=== PATIENT | male | born 1950 | race Two or more races ===

== ENCOUNTER 2017-10-22 20:44 | Emergency (ER) | payer MEDICARE, OTHER ==
[~2017-10-22] VITALS: Ht 172.7 cm; Wt 81.6 kg
[2017-10-22 20:51] VITALS: BP 110/76
[2017-10-22] MEDS ORDERED: Phenytoin Susp 100mg/4ml NG ONE (21:15)
[2017-10-22] MEDS ORDERED: Phenytoin 100mg cap ORAL ONE (21:30)
[2017-10-23] MEDS ORDERED: DILANTIN100 MG ORAL (01:19)
--- NOTE | 2017-10-23 01:20 | Emergency Room Report ---
History of Present Illness General Chief Complaint: Multiple Trauma/Fall Source: Patient Present Illness HPI Is a 67-year-old male who uses a wheelchair. He has a history of seizure and alcohol abuse. He presents with right shoulder pain and head injury. He said that he fell out of his wheelchair and landed on his right shoulder hit his head. Complaining of pain in that area. He called 911. Pain is 9 out of 10. No other injury. Did not pass out. EMS did not bring his wheelchair with him. Allergies: Coded Allergies: No Known Allergies (Unverified , 10/22/17) Patient History Past Medical History: see triage record, old chart reviewed, seizures Past Surgical History: other Pertinent Family History: none Social History: Reports: alcohol use Immunizations: other Reviewed Nursing Documentation: PMH: Agreed; PSxH: Agreed Nursing Documentation-PMH Hx Seizures: Yes Review of Systems Eye: Denies: eye pain, blurred vision ENT: Denies: ear pain, nose congestion, throat swelling Respiratory: Denies: cough, shortness of breath Cardiovascular: Denies: chest pain, palpitations Gastrointestinal: Denies: abdominal pain, diarrhea, nausea, vomiting Musculoskeletal: Reports: joint swelling; Denies: back pain, joint pain Skin: Denies: rash Neurological: Denies: headache, numbness Endocrine: Denies: increased thirst, increased urine Hematologic/Lymphatic: Denies: easy bruising All Other Systems: negative except mentioned in HPI Physical Exam Vital Signs Date Time Temp Pulse Resp B/P (MAP) Pulse Ox O2 Delivery O2 Flow Rate FiO2 10/22/17 20:39 98.4 98 18 110/76 98 Room Air 98.4 vitals normal Sp02 EP Interpretation: reviewed, normal General Appearance: well appearing, no apparent distress, alert, other - Intoxicated Head: normocephalic, atraumatic Eyes: right eye other - He has some puffiness to right eyelids; bilateral eye PERRL, bilateral eye EOMI ENT: hearing grossly normal, normal pharynx Neck: full range of motion, supple, no meningismus Respiratory: chest non-tender, lungs clear, normal breath sounds Cardiovascular #1: regular rate, rhythm, no murmur Gastrointestinal: normal bowel sounds, non tender, no mass, no organomegaly, no bruit, non-distended Musculoskeletal: back normal, normal range of motion, other - Right shoulder tenderness. Patient is sleeping on that shoulder. Psychiatric: mood/affect normal Skin: warm/dry Medical Decision Making Diagnostic Impression: Primary Impression: Head injury, acute Qualified Codes: S09.90XA - Unspecified injury of head, initial encounter Additional Impressions: Contusion of shoulder, right Qualified Codes: S40.011A - Contusion of right shoulder, initial encounter Alcohol intoxication Qualified Codes: F10.920 - Alcohol use, unspecified with intoxication, uncomplicated ER Course Patient presents with soft tissue injury from a fall. No bleed. He said he did not take his Dilantin medication tonight so I gave him a dose. We'll discharge home. Other X-Ray Diagnostic Results Other X-Ray Diagnostic Results : X-Ray ordered: Right shoulder x-rays # of Views/Limited Vs Complete: 3 View Indication: Pain EP Interpretation: Yes Interpretation: no dislocation, no soft tissue swelling, no fractures Impression: No acute disease Electronically Signed by: Davin Zavala MD CT/MRI/US Diagnostic Results CT/MRI/US Diagnostic Results : Imaging Test Ordered: CT head Impression Ct head read by radiologist. Neg Last Vital Signs Date Time Temp Pulse Resp B/P (MAP) Pulse Ox O2 Delivery O2 Flow Rate FiO2 10/22/17 20:51 98.4 98 18 110/76 98 Room Air 98.4 Status: improved Disposition: HOME, SELF-CARE Condition: Stable Scripts Phenytoin Sodium Extended* (DILANTIN*) 100 Mg Capsule 300 MG ORAL BEDTIME, #90 CAP Prov: DAVIN ZAVALA M.D. 10/23/17 Referrals: NOT CHOSEN JOSEFA/,REFERRING (PCP) Additional Instructions: Abstain from alcohol. Take your seizure medication. Return of worse. Follow- up your doctor in 7 days. DAVIN ZAVALA M.D. Oct 23, 2017 01:20
[2017-10-23 01:42] VITALS: BP 126/72
[2017-10-23 05:20] VITALS: BP_SYST 118; BP_SYST 126; BP_DIAS 72; BP_DIAS 73
--- NOTE | 2017-10-23 08:45 | Diagnostic Imaging Report ---
Indication: Trauma, pain. Technique: Continuous helical CT scanning of the head was performed utilizing automated exposure control without intravenous contrast material. Axial and coronal reconstructions were obtained. Comparison: None CT dose: Total DLP 1432.33 mGycm; CTDI vol 70.38 mGy Findings: There is no acute intracranial hemorrhage, mass effect or cortical edema. The ventricles, cisterns and sulci are prominent consistent with atrophy. Periventricular hypoattenuation is seen, a nonspecific finding most likely related to sequela of chronic microvascular ischemia mastoid air cells are clear. There is mild/moderate mucosal thickening in the paranasal sinuses. There is mild soft tissue swelling in the right posterior parietal scalp. Right-sided periorbital soft tissue swelling is also noted. No depressed calvarial fracture. IMPRESSION: No evidence of acute intracranial hemorrhage, mass effect or cortical edema. Atrophy and nonspecific periventricular hypoattenuation suggestive of chronic ischemic microvascular changes. Mild soft tissue swelling. No depressed calvarial fracture. The CT scanner at [facility] is accredited by the [employer] and the scans are performed using protocols designed to limit radiation exposure to as low as reasonably achievable to attain images of sufficient resolution adequate for diagnostic evaluation.
--- NOTE | 2017-10-23 08:50 | Diagnostic Imaging Report ---
Indication: Trauma, pain Technique: XRAY Shoulder Compl R Comparison: None Findings: There is no acute fracture or dislocation. There is some degenerative change of the glenohumeral joint. There is a large subacromial enthesophyte. There are remote/healed right-sided rib fractures. Right lung grossly clear. No radiopaque foreign body identified. IMPRESSION: No acute fracture or dislocation. Subacromial enthesophytes. Recommend nonemergent MRI of the shoulder for further evaluation as clinically indicated.
== END 2017-10-23 05:21 | disposition home or self-care (01) ==
LOC: EDBD 20:44 → EMR 21:33
DX: S09.90XA Unspecified injury of head, initial encounter (principal); S40.011A Contusion of right shoulder, initial encounter; W05.0XXA Fall from non-moving wheelchair, initial encounter; Y93.9 Activity, unspecified; Y92.9 Unspecified place or not applicable; F10.920 Alcohol use, unspecified with intoxication, uncomplicated; G40.909 Epilepsy, unspecified, not intractable, without status epilepticus
CPT/HCPCS: 70450; 99284

== ENCOUNTER 2017-10-23 08:56 | Inpatient (IN) | payer MEDICARE, OTHER ==
[2017-10-23] VITALS (21 sets, daily range): BP systolic 86–141; BP diastolic 41–87
[~2017-10-23] VITALS: Ht 172.7 cm; Wt 83.9 kg
[~2017-10-23 08:56] MED LIST: DILANTIN100 MG ORAL
[2017-10-23] MEDS ORDERED: levETIRAcetam 500 MG in D5W 110 ML IV ONE (09:00)
[2017-10-23] MEDS ORDERED: LORazepam Inj 2mg/ml 1ml IV ONE ×2 (09:15→11:30)
[2017-10-23] MEDS ORDERED: Sodium Chloride 500ML 500 ML IV ONE (09:15)
[2017-10-23] MEDS ORDERED: Thiamine HCl 100 MG in D5W 55 ML IVPB ONE (09:15)
[2017-10-23] MEDS ORDERED: dilTIAZem HCl 25mg/5ml Inj IVP ONE ×2 (09:30→10:45)
[2017-10-23 09:38] LABS: HEMATOCRIT 39.6 % (42.0-52.0); HEMOGLOBIN 12.8 G/DL (14.2-18.0); MEAN CORPUSCULAR VOLUME 89 FL (80-99); PLATELET COUNT 65 K/UL (150-450); RED BLOOD COUNT 4.46 M/UL (4.70-6.10); RED CELL DISTRIBUTION WIDTH 14.5 % (11.6-14.8); WHITE BLOOD COUNT 3.4 K/UL (4.8-10.8)
[2017-10-23 09:52] LABS: ANION GAP 16 mmol/L (5-15); BLOOD UREA NITROGEN 7 mg/dL (7-18); CALCIUM 8.9 MG/DL (8.5-10.1); CARBON DIOXIDE 23 MMOL/L (21-32); CHLORIDE 94 MMOL/L (98-107); POTASSIUM 3.9 MMOL/L (3.5-5.1); SODIUM 133 MMOL/L (136-145)
[2017-10-23 09:57] LABS: ALANINE AMINOTRANSFERASE 38 U/L (12-78); ALBUMIN 3.7 G/DL (3.4-5.0); ALBUMIN/GLOBULIN RATIO 0.9 (1.0-2.7); ALKALINE PHOSPHATASE 137 U/L (46-116); ASPARTATE AMINO TRANSFERASE 79 U/L (15-37); BILIRUBIN,TOTAL 0.9 MG/DL (0.2-1.0)
--- NOTE | 2017-10-23 10:14 | Diagnostic Imaging Report ---
Indication: Altered mental status Technique: Continuous helical CT scanning of the head was performed utilizing automated exposure control without intravenous contrast material. Axial and coronal reconstructions were obtained. Comparison: 10/22/2017 CT dose: Total DLP 1467.58 mGycm; CTDI vol 70.38 mGy Findings: There is no acute intracranial hemorrhage, mass effect or midline shift. The ventricles, cisterns and sulci are prominent consistent with atrophy. Periventricular hypoattenuation is seen, a nonspecific finding most likely related to sequela of chronic microvascular ischemia. Mastoid air cells are clear. There is mild mucosal thickening in the utilized paranasal sinuses. There is mild soft tissue swelling in the right posterior parietal scalp. Right-sided periorbital soft tissue swelling is also noted. No depressed calvarial fracture. IMPRESSION: No significant interval change from exam approximately 12 hours prior. No evidence of acute intracranial hemorrhage, mass effect or cortical edema. Atrophy and nonspecific periventricular hypoattenuation suggestive of chronic ischemic microvascular changes. Mild soft tissue swelling. No depressed calvarial fracture. The CT scanner at [facility] is accredited by the [employer] and the scans are performed using protocols designed to limit radiation exposure to as low as reasonably achievable to attain images of sufficient resolution adequate for diagnostic evaluation.
[2017-10-23] MEDS: LR 1000ml 1,000 ML IV SCH ×2 (10:56→15:43)
--- NOTE | 2017-10-23 11:33 | Emergency Room Report ---
History of Present Illness General Chief Complaint: Seizure Source: EMS Present Illness HPI Patient is a 67-year-old male brought in by EMS after witnessed seizure. Patient had prior history of seizure disorder as well as alcohol abuse. Patient not been taking his Dilantin. The patient was seen emergency department last night with similar symptoms. Patient was noted to be tachycardic. The patient reported having generalized pain. Allergies: Coded Allergies: No Known Allergies (Unverified , 10/22/17) Patient History Past Medical History: see triage record, old chart reviewed Reviewed Nursing Documentation: PMH: Agreed; PSxH: Agreed Nursing Documentation-PMH Hx Seizures: Yes Review of Systems All Other Systems: limited - by mental status Physical Exam Vital Signs Date Time Temp Pulse Resp B/P (MAP) Pulse Ox O2 Delivery O2 Flow Rate FiO2 10/23/17 08:47 97.0 150 18 116/61 96 Room Air 97.0 10/23/17 10:05 3.0 Sp02 EP Interpretation: reviewed, normal General Appearance: Chronically Ill Head: atraumatic ENT: normal ENT inspection, hearing grossly normal, normal voice Neck: no bony tend, limited range of motion Respiratory: normal inspection, normal breath sounds, no respiratory distress, no retraction, no wheezing Cardiovascular #1: tachycardia Gastrointestinal: normal inspection, normal bowel sounds, non tender, soft, no guarding, no hernia Genitourinary: no CVA tenderness Musculoskeletal: normal inspection Neurologic: normal inspection, alert, motor weakness, other - tremulousness Psychiatric: mood/affect normal Skin: normal color, no rash Procedures Critical Care Time Critical Care Time Patient had a critical medical condition which untreated could potentially result in life or limb threatening injury. Total critical care time excluding procedures approximately 45 minutes. Medical Decision Making Diagnostic Impression: Primary Impression: Epileptic seizure, generalized Additional Impressions: Atrial flutter Alcohol abuse Thrombocytopenia ER Course Patient presented for seizure. Differential diagnosis included alcohol withdrawal, cysticercosis, electrolyte abnormality, mass lesion, or cranial hemorrhage.The patient noted to have atrial flutter on EKG. Patient was started on IV Cardizem 2 without any improvement in the patient's heart rate. The patient is given IV magnesium as well as IV thiamine. The patient was given Keppra for seizure prophylaxis. Patient was given Ativan due to history of alcohol abuse. The patient was noted to have continued tachycardia after medication interventions. Patient was suddenly started on an amiodarone drip. Dr. Hanh Morataya was contacted for inpatient management due to panel physician Labs Test 10/23/17 09:24 White Blood Count 3.4 K/UL (4.8-10.8) Red Blood Count 4.46 M/UL (4.70-6.10) Hemoglobin 12.8 G/DL (14.2-18.0) Hematocrit 39.6 % (42.0-52.0) Mean Corpuscular Volume 89 FL (80-99) Mean Corpuscular Hemoglobin 28.8 PG (27.0-31.0) Mean Corpuscular Hemoglobin Concent 32.4 G/DL (32.0-36.0) Red Cell Distribution Width 14.5 % (11.6-14.8) Platelet Count 65 K/UL (150-450) Mean Platelet Volume 7.3 FL (6.5-10.1) Neutrophils (%) (Auto) % (45.0-75.0) Lymphocytes (%) (Auto) % (20.0-45.0) Monocytes (%) (Auto) % (1.0-10.0) Eosinophils (%) (Auto) % (0.0-3.0) Basophils (%) (Auto) % (0.0-2.0) Differential Total Cells Counted 100 Neutrophils % (Manual) 79 % (45-75) Lymphocytes % (Manual) 13 % (20-45) Monocytes % (Manual) 6 % (1-10) Eosinophils % (Manual) 0 % (0-3) Basophils % (Manual) 1 % (0-2) Band Neutrophils 1 % (0-8) Platelet Estimate Decreased Platelet Morphology Normal Sodium Level 133 MMOL/L (136-145) Potassium Level 3.9 MMOL/L (3.5-5.1) Chloride Level 94 MMOL/L (98-107) Carbon Dioxide Level 23 MMOL/L (21-32) Anion Gap 16 mmol/L (5-15) Blood Urea Nitrogen 7 mg/dL (7-18) Creatinine 1.0 MG/DL (0.55-1.30) Estimat Glomerular Filtration Rate > 60 mL/min (>60) Glucose Level 175 MG/DL (74-106) Calcium Level 8.9 MG/DL (8.5-10.1) Total Bilirubin 0.9 MG/DL (0.2-1.0) Aspartate Amino Transf (AST/SGOT) 79 U/L (15-37) Alanine Aminotransferase (ALT/SGPT) 38 U/L (12-78) Alkaline Phosphatase 137 U/L (46-116) Total Protein 8.0 G/DL (6.4-8.2) Albumin 3.7 G/DL (3.4-5.0) Globulin 4.3 g/dL Albumin/Globulin Ratio 0.9 (1.0-2.7) Phenytoin (Dilantin) Level 3.5 ug/mL (10-20) EKG Diagnostic Results Rate: tachycardiac Rhythm: other - atrial flutter Last Vital Signs Date Time Temp Pulse Resp B/P (MAP) Pulse Ox O2 Delivery O2 Flow Rate FiO2 10/23/17 10:50 144 141/77 10/23/17 10:05 22 91 Nasal Cannula 3.0 10/23/17 08:47 97.0 97.0 Status: improved Disposition: ADMITTED INPATIENT Condition: Critical Referrals: NOT CHOSEN IPA/,REFERRING (PCP) Sincere Garza MD Oct 23, 2017 11:33
[2017-10-23] MEDS ORDERED: Amiodarone 150mg/ml 3ml Amp IVP ONE (12:15)
--- NOTE | 2017-10-23 13:27 | Consultation ---
History of Present Illness General Date patient seen: Oct 23, 2017 Chief Complaint: Seizure Present Illness HPI 67-year-old male brought in by EMS after witnessed seizure Allergies: Coded Allergies: No Known Allergies (Unverified , 10/22/17) Medication History Scheduled Phenytoin Sodium Extended* (Dilantin*), 300 MG ORAL BEDTIME Patient History Healthcare decision maker Resuscitation status Advanced Directive on File Physical Exam Last 24 Hour Vital Signs Date Time Temp Pulse Resp B/P (MAP) Pulse Ox O2 Delivery O2 Flow Rate FiO2 10/23/17 11:58 154 18 116/77 93 Nasal Cannula 4.0 10/23/17 10:50 144 141/77 10/23/17 10:05 144 22 141/77 91 Nasal Cannula 3.0 10/23/17 09:45 150 116/61 10/23/17 09:30 150 18 Room Air 10/23/17 08:47 97.0 150 18 116/61 96 Room Air 97.0 Laboratory Tests Test 10/23/17 09:24 White Blood Count 3.4 K/UL (4.8-10.8) L Red Blood Count 4.46 M/UL (4.70-6.10) L Hemoglobin 12.8 G/DL (14.2-18.0) L Hematocrit 39.6 % (42.0-52.0) L Mean Corpuscular Volume 89 FL (80-99) Mean Corpuscular Hemoglobin 28.8 PG (27.0-31.0) Mean Corpuscular Hemoglobin Concent 32.4 G/DL (32.0-36.0) Red Cell Distribution Width 14.5 % (11.6-14.8) Platelet Count 65 K/UL (150-450) L Mean Platelet Volume 7.3 FL (6.5-10.1) Neutrophils (%) (Auto) % (45.0-75.0) Lymphocytes (%) (Auto) % (20.0-45.0) Monocytes (%) (Auto) % (1.0-10.0) Eosinophils (%) (Auto) % (0.0-3.0) Basophils (%) (Auto) % (0.0-2.0) Differential Total Cells Counted 100 Neutrophils % (Manual) 79 % (45-75) H Lymphocytes % (Manual) 13 % (20-45) L Monocytes % (Manual) 6 % (1-10) Eosinophils % (Manual) 0 % (0-3) Basophils % (Manual) 1 % (0-2) Band Neutrophils 1 % (0-8) Platelet Estimate Decreased L Platelet Morphology Normal Sodium Level 133 MMOL/L (136-145) L Potassium Level 3.9 MMOL/L (3.5-5.1) Chloride Level 94 MMOL/L (98-107) L Carbon Dioxide Level 23 MMOL/L (21-32) Anion Gap 16 mmol/L (5-15) H Blood Urea Nitrogen 7 mg/dL (7-18) Creatinine 1.0 MG/DL (0.55-1.30) Estimat Glomerular Filtration Rate > 60 mL/min (>60) Glucose Level 175 MG/DL (74-106) H Calcium Level 8.9 MG/DL (8.5-10.1) Total Bilirubin 0.9 MG/DL (0.2-1.0) Aspartate Amino Transf (AST/SGOT) 79 U/L (15-37) H Alanine Aminotransferase (ALT/SGPT) 38 U/L (12-78) Alkaline Phosphatase 137 U/L (46-116) H Total Protein 8.0 G/DL (6.4-8.2) Albumin 3.7 G/DL (3.4-5.0) Globulin 4.3 g/dL Albumin/Globulin Ratio 0.9 (1.0-2.7) L Phenytoin (Dilantin) Level 3.5 ug/mL (10-20) L Height (Feet): 5 Height (Inches): 8.00 Weight (Pounds): 180 Medications Current Medications Medications (Trade) Dose Ordered Sig/Terrie Route PRN Reason Start Time Stop Time Status Last Admin Dose Admin Amiodarone HCl 900 mg/Dextrose 500 ml @ 0 mls/hr Q24H IV 10/23/17 13:30 10/24/17 13:29 10/23/17 13:09 Diazepam (Valium) 10 mg EVERY 4 HOURS PRN ORAL For Anxiety 10/23/17 13:30 10/30/17 13:29 UNV Folic Acid 1 mg/ Magnesium Sulfate 2000 mg/ Multivitamins 10 ml/Sodium Chloride 1,014.2 ml @ 75 mls/hr Q24H IV 10/23/17 14:30 11/22/17 14:29 Lactated Ringer's 1,000 ml @ 150 mls/hr Q6H40M IV 10/23/17 11:00 11/22/17 10:59 10/23/17 10:56 Thiamine HCl (Vitamin B1) 100 mg DAILY ORAL 10/23/17 13:30 11/22/17 13:29 Thiamine HCl 100 mg/Dextrose 56 ml @ 112 mls/hr Q24H IVPB 10/23/17 14:30 11/22/17 14:29 Assessment/Plan Assessment/Plan alcohol dependence alcohol w/d anxiety seizure d/o -Valium 10mg q4rh prn -folate -thiamine -Dilantin 300mg qhs Beverley Marvin MD Oct 23, 2017 13:27
[2017-10-23] MEDS ORDERED: Thiamine 100mg tab ORAL SCH (13:30)
[2017-10-23] MEDS ORDERED: Amiodarone 900mg in D5W 500ml IV SCH (13:30)
[2017-10-23] MEDS ORDERED: Thiamine 100mg in D5W 55ml IVPB SCH (14:30)
[2017-10-23] MEDS ORDERED: Folic Acid 1 MG, Magnesium Sulfate 2,000 MG, Multivitamin - 12 Injection 10 ML in NS 10... IV SCH (14:30)
[2017-10-23] MEDS ORDERED: Amiodarone 900 MG in D5W 500ml 482 ML IV SCH (15:30)
--- NOTE | 2017-10-23 16:07 | Consultation ---
Consult Note Consult Note asked to eval for electrolyte and IV management Patient is a 67-year-old male brought in by EMS after witnessed seizure. Patient had prior history of seizure disorder as well as alcohol abuse. Patient not been taking his Dilantin. The patient was seen emergency department last night with similar symptoms. Patient was noted to be tachycardic. The patient reported having generalized pain. in icu confused on amio drip Assessment/Plan HypoNatremia- Seizure - Etoh Abuse- PanCytopenia- Plan: Isotonic IV solution- Correct lytes , mag , Phos.. Anti Sz meds- monitor Dilantin- UA Urine Tox Screen DIlantin levels Vikas Chowdhury MD Oct 23, 2017 16:07
[2017-10-23] MEDS: D5NS 1,000 ML IV SCH (16:24)
[2017-10-23] MEDS ORDERED: Phenytoin 500 MG in NS 110 ML IVPB ONE (17:30)
[2017-10-23] MEDS ORDERED: Phenytoin 100mg cap ORAL SCH (21:00)
[2017-10-23 21:05] LABS: APPEARANCE,URINE CLEAR; BILIRUBIN, URINE NEGATIVE (NEGATIVE); GLUCOSE, URINE (UA) NEGATIVE (NEGATIVE); KETONES,URINE NEGATIVE (NEGATIVE); LEUKOCYTE ESTERASE ,URINE NEGATIVE (NEGATIVE); NITRITE,URINE NEGATIVE (NEGATIVE); PH,URINE 8 (4.5-8.0); PROTEIN,URINE NEGATIVE (NEGATIVE); UROBILINOGEN,URINE 4 MG/DL (0.0-1.0)
[2017-10-23 21:06] LABS: COLOR,URINE YELLOW
[2017-10-24] VITALS (24 sets, daily range): BP systolic 84–119; BP diastolic 44–72
--- NOTE | 2017-10-24 01:00 | History and Physical Report ---
DATE OF ADMISSION: 10/23/2017 NOTE: POOR AUDIO HISTORY OF PRESENT ILLNESS: I saw the patient before going to the ICU, in the emergency room at 12:47 p.m. on October 23, 2017. The patient is just coming out of his seizures, is still confused. He also has a hearing loss deficit. However, apparently, the patient is complaining of right shoulder pain. fell while the patient was having seizure. He has been having recurrent seizures yesterday and most likely could be due to alcohol withdrawal seizure as well. The patient has apparently history of alcohol abuse. The patient is also going to the ICU for atrial flutter with a heart rate of 150, has been on amiodarone drip. Again, cannot get a reliable history from the patient at this point. PAST MEDICAL HISTORY: Significant for alcohol abuse, history of seizures. The patient apparently has been noncompliant with his medications. The patient is also homeless, history of thrombocytopenia. PAST SURGICAL HISTORY: Cannot tell me the surgery he had. MEDICATIONS: Dilantin, noncompliant. SOCIAL HISTORY: He has history of alcohol abuse, history of smoking, homeless. FAMILY HISTORY: Noncontributory. REVIEW OF SYSTEMS: Again, poor historian, cannot history.HEENT: Denies headaches. RESPIRATORY: Denies shortness of breath. Denies cough. CARDIOVASCULAR: Denies chest pain. GASTROINTESTINAL: No nausea, vomiting, or diarrhea. EXTREMITIES: Reports right shoulder pain. NEUROLOGIC: Significant changes , had seizures just now. PHYSICAL EXAMINATION: GENERAL: one hour ago, oriented to name. Opens eyes. VITAL SIGNS: Temperature 97, pulse is 150, and blood pressure 116/61. HEENT: PERRLA. Disheveled, some lacerations on the face. CHEST: Clear to auscultation. CARDIOVASCULAR: Irregularly irregular. Tachycardic. GASTROINTESTINAL: Soft. Positive bowel sounds. Nontender. EXTREMITIES: The patient complaining of right shoulder pain. Decreased range of motion in the right shoulder. NEUROLOGIC: Oriented to name only. Does not follow neurological exam. LABORATORY AND DIAGNOSTIC DATA: WBC of 3.4, hemoglobin of 12.8, and platelets of 65. Sodium 133, potassium 3.9, BUN of 7, creatinine of 1, and glucose of 175. AST of 75 and ALT of 38. Total bilirubin 0.9. CT of the brain, according to the ER doctor, no acute events at this point. ASSESSMENT AND PLAN: Atrial fibrillation. Altered mental status. Withdrawal seizure and alcohol abuse. I have asked Dr. Joshi, Dr. Chowdhury, and Dr. Marvin to see the patient for the above-mentioned diagnoses and treatment. Hanh Arthur M.D. DR: TRIP JOB#: [id number] CC:
[2017-10-24] MEDS: D5NS 1,000 ML IV SCH ×2 (02:16→12:07)
--- NOTE | 2017-10-24 10:47 | Cardiac Electrophysiology PN ---
Subjective Subjective [id number] Objective Last 24 Hour Vital Signs Date Time Temp Pulse Resp B/P (MAP) Pulse Ox O2 Delivery O2 Flow Rate FiO2 10/24/17 10:00 74 13 110/62 (78) 98 10/24/17 09:00 70 15 101/52 (68) 96 10/24/17 08:00 64 10/24/17 08:00 Nasal Cannula 3.0 10/24/17 08:00 72 15 103/60 (74) 98 10/24/17 07:30 98.7 67 17 98/51 (67) 98 98.7 10/24/17 07:00 63 16 103/56 (72) 95 10/24/17 06:30 67 17 84/54 (64) 94 10/24/17 06:00 68 15 99/57 (71) 94 10/24/17 05:30 65 16 101/54 (70) 95 10/24/17 05:00 65 13 88/50 (63) 97 10/24/17 04:30 66 19 97/51 (66) 95 10/24/17 04:00 Nasal Cannula 3.0 10/24/17 04:00 69 10/24/17 04:00 98.3 69 16 87/44 (58) 95 98.3 10/24/17 03:48 81 109/56 10/24/17 03:30 68 16 109/72 (84) 96 10/24/17 03:00 68 17 103/51 (68) 95 10/24/17 02:30 71 18 100/53 (69) 95 10/24/17 02:00 69 15 96/51 (66) 96 10/24/17 01:30 69 15 98/52 (67) 97 10/24/17 01:00 74 18 97/57 (70) 97 10/24/17 00:30 68 15 92/47 (62) 97 10/24/17 00:00 71 10/24/17 00:00 98.2 71 17 92/50 (64) 96 98.2 10/24/17 00:00 Nasal Cannula 3.0 10/23/17 23:30 71 15 86/41 (56) 97 10/23/17 23:00 73 15 88/43 (58) 97 10/23/17 22:30 72 17 86/41 (56) 96 10/23/17 22:00 73 17 87/43 (58) 96 10/23/17 21:30 74 17 96/48 (64) 96 10/23/17 21:06 78 18 89/44 (59) 95 10/23/17 20:30 74 16 108/61 (77) 97 10/23/17 20:00 75 10/23/17 20:00 98.0 76 16 98/52 (67) 97 98.0 10/23/17 20:00 Nasal Cannula 3.0 10/23/17 19:30 75 15 104/57 (73) 96 10/23/17 19:00 75 15 120/63 (82) 97 10/23/17 18:00 82 16 118/63 (81) 96 10/23/17 17:30 78 16 108/60 (76) 98 10/23/17 17:00 98.0 90 17 105/62 (76) 96 98.0 10/23/17 16:45 103 19 116/87 (97) 96 10/23/17 16:30 110 20 92/72 (79) 96 10/23/17 16:15 128 22 96/84 (88) 94 10/23/17 16:05 98 102/64 10/23/17 16:00 Nasal Cannula 3.5 10/23/17 16:00 111 20 102/64 (77) 96 10/23/17 15:00 104 19 106/65 (79) 96 10/23/17 14:00 Nasal Cannula 3.5 10/23/17 14:00 97.7 111 17 105/66 (79) 96 97.7 10/23/17 13:48 97.0 154 18 116/77 93 Nasal Cannula 4.0 97.0 10/23/17 13:40 4.0 10/23/17 13:40 99 10/23/17 11:58 154 18 116/77 93 Nasal Cannula 4.0 10/23/17 10:50 144 141/77 Intake and Output 10/23/17 10/24/17 19:00 07:00 Intake Total 473.66 ml 1766.58 ml Output Total 1115 ml 800 ml Balance -641.34 ml 966.58 ml Intake Oral 0 ml 120 ml IV Total 473.66 ml 1646.58 ml Output Urine Total 1115 ml 800 ml Laboratory Tests Test 10/23/17 20:00 Urine Color Yellow Urine Appearance Clear Urine pH 8 (4.5-8.0) Urine Specific [place] 1.010 (1.005-1.035) Urine Protein Negative (NEGATIVE) Urine Glucose (UA) Negative (NEGATIVE) Urine Ketones Negative (NEGATIVE) Urine Occult Blood Negative (NEGATIVE) Urine Nitrite Negative (NEGATIVE) Urine Bilirubin Negative (NEGATIVE) Urine Urobilinogen 4 MG/DL (0.0-1.0) H Urine Leukocyte Esterase Negative (NEGATIVE) Urine RBC 0-2 /HPF (0 - 0) H Urine WBC 0 /HPF (0 - 0) Urine Squamous Epithelial Cells None /LPF (NONE/OCC) Urine Bacteria None /HPF (NONE) Urine Opiates Screen Negative (NEGATIVE) Urine Barbiturates Screen Negative (NEGATIVE) Phencyclidine (PCP) Screen Negative (NEGATIVE) Urine Amphetamines Screen Negative (NEGATIVE) Urine Benzodiazepines Screen Negative (NEGATIVE) Urine Cocaine Screen Negative (NEGATIVE) Urine Marijuana (THC) Screen Negative (NEGATIVE) Helder Joshi MD Oct 24, 2017 10:47
--- NOTE | 2017-10-24 11:07 | Nephrology Progress Note ---
Assessment/Plan Problem List: (1) Seizure (2) Alcohol abuse (3) Thrombocytopenia Assessment HypoNatremia- Seizure - Etoh Abuse- PanCytopenia- Plan uncoaporative- refuses blood work- continue per Psych will change meds to po as possible Isotonic IV solution- Correct lytes , mag , Phos.. Anti Sz meds- monitor Dilantin- UA DIlantin levels Subjective ROS Limited/Unobtainable: No Constitutional: Reports: malaise Objective Objective Last 24 Hour Vital Signs Date Time Temp Pulse Resp B/P (MAP) Pulse Ox O2 Delivery O2 Flow Rate FiO2 10/24/17 10:00 74 13 110/62 (78) 98 10/24/17 09:00 70 15 101/52 (68) 96 10/24/17 08:00 64 10/24/17 08:00 Nasal Cannula 3.0 10/24/17 08:00 72 15 103/60 (74) 98 10/24/17 07:30 98.7 67 17 98/51 (67) 98 98.7 10/24/17 07:00 63 16 103/56 (72) 95 10/24/17 06:30 67 17 84/54 (64) 94 10/24/17 06:00 68 15 99/57 (71) 94 10/24/17 05:30 65 16 101/54 (70) 95 10/24/17 05:00 65 13 88/50 (63) 97 10/24/17 04:30 66 19 97/51 (66) 95 10/24/17 04:00 Nasal Cannula 3.0 10/24/17 04:00 69 10/24/17 04:00 98.3 69 16 87/44 (58) 95 98.3 10/24/17 03:48 81 109/56 10/24/17 03:30 68 16 109/72 (84) 96 10/24/17 03:00 68 17 103/51 (68) 95 10/24/17 02:30 71 18 100/53 (69) 95 10/24/17 02:00 69 15 96/51 (66) 96 10/24/17 01:30 69 15 98/52 (67) 97 10/24/17 01:00 74 18 97/57 (70) 97 10/24/17 00:30 68 15 92/47 (62) 97 10/24/17 00:00 71 10/24/17 00:00 98.2 71 17 92/50 (64) 96 98.2 10/24/17 00:00 Nasal Cannula 3.0 10/23/17 23:30 71 15 86/41 (56) 97 10/23/17 23:00 73 15 88/43 (58) 97 10/23/17 22:30 72 17 86/41 (56) 96 10/23/17 22:00 73 17 87/43 (58) 96 10/23/17 21:30 74 17 96/48 (64) 96 10/23/17 21:06 78 18 89/44 (59) 95 10/23/17 20:30 74 16 108/61 (77) 97 10/23/17 20:00 75 10/23/17 20:00 98.0 76 16 98/52 (67) 97 98.0 10/23/17 20:00 Nasal Cannula 3.0 10/23/17 19:30 75 15 104/57 (73) 96 10/23/17 19:00 75 15 120/63 (82) 97 10/23/17 18:00 82 16 118/63 (81) 96 10/23/17 17:30 78 16 108/60 (76) 98 10/23/17 17:00 98.0 90 17 105/62 (76) 96 98.0 10/23/17 16:45 103 19 116/87 (97) 96 10/23/17 16:30 110 20 92/72 (79) 96 10/23/17 16:15 128 22 96/84 (88) 94 10/23/17 16:05 98 102/64 10/23/17 16:00 Nasal Cannula 3.5 10/23/17 16:00 111 20 102/64 (77) 96 10/23/17 15:00 104 19 106/65 (79) 96 10/23/17 14:00 Nasal Cannula 3.5 10/23/17 14:00 97.7 111 17 105/66 (79) 96 97.7 10/23/17 13:48 97.0 154 18 116/77 93 Nasal Cannula 4.0 97.0 10/23/17 13:40 4.0 10/23/17 13:40 99 10/23/17 11:58 154 18 116/77 93 Nasal Cannula 4.0 Intake and Output 10/23/17 10/24/17 19:00 07:00 Intake Total 473.66 ml 1766.58 ml Output Total 1115 ml 800 ml Balance -641.34 ml 966.58 ml Intake Oral 0 ml 120 ml IV Total 473.66 ml 1646.58 ml Output Urine Total 1115 ml 800 ml Laboratory Tests 10/23/17 20:00: Urine Color Yellow, Urine Appearance Clear, Urine pH 8, Urine Specific [place] 1.010, Urine Protein Negative, Urine Glucose (UA) Negative, Urine Ketones Negative, Urine Occult Blood Negative, Urine Nitrite Negative, Urine Bilirubin Negative, Urine Urobilinogen 4H, Urine Leukocyte Esterase Negative, Urine RBC 0- 2H, Urine WBC 0, Urine Squamous Epithelial Cells None, Urine Bacteria None, Urine Opiates Screen Negative, Urine Barbiturates Screen Negative, Phencyclidine (PCP) Screen Negative, Urine Amphetamines Screen Negative, Urine Benzodiazepines Screen Negative, Urine Cocaine Screen Negative, Urine Marijuana (THC) Screen Negative Height (Feet): 5 Height (Inches): 8.00 Weight (Pounds): 187 General Appearance: mild distress, other - uncoaporative Cardiovascular: regular rhythm Respiratory/Chest: decreased breath sounds Abdomen: soft, distended Vikas Chowdhury MD Oct 24, 2017 11:07
[2017-10-24] MEDS ORDERED: Thiamine 100mg tab ORAL SCH (11:14)
[2017-10-24] MEDS ORDERED: D5NS 1,000 ML IV SCH (12:45)
--- NOTE | 2017-10-24 13:00 | General Progress Note ---
Assessment/Plan Problem List: (1) Atrial flutter ICD Codes: I48.92 - Unspecified atrial flutter SNOMED: 4097890 (2) Epileptic seizure, generalized ICD Codes: G40.309 - Generalized idiopathic epilepsy and epileptic syndromes, not intractable, without status epilepticus SNOMED: 15667691 (3) Alcohol abuse ICD Codes: F10.10 - Alcohol abuse, uncomplicated SNOMED: 35863685 (4) Thrombocytopenia ICD Codes: D69.6 - Thrombocytopenia, unspecified SNOMED: 344924610 (5) Seizure ICD Codes: R56.9 - Unspecified convulsions SNOMED: 12104267 Status: progressing Assessment/Plan a flutter rate controlled off drip going out of icu per [facility] no seizure today etoh abuse reviewed chart and labs Subjective ROS Limited/Unobtainable: Yes Allergies: Coded Allergies: No Known Allergies (Unverified , 10/22/17) Objective Last 24 Hour Vital Signs Date Time Temp Pulse Resp B/P (MAP) Pulse Ox O2 Delivery O2 Flow Rate FiO2 10/24/17 12:00 67 10/24/17 12:00 98.8 65 14 100/64 (76) 99 98.8 10/24/17 12:00 Nasal Cannula 3.0 10/24/17 11:00 71 14 108/65 (79) 99 10/24/17 10:00 74 13 110/62 (78) 98 10/24/17 09:00 70 15 101/52 (68) 96 10/24/17 08:00 64 10/24/17 08:00 Nasal Cannula 3.0 10/24/17 08:00 72 15 103/60 (74) 98 10/24/17 07:30 98.7 67 17 98/51 (67) 98 98.7 10/24/17 07:00 63 16 103/56 (72) 95 10/24/17 06:30 67 17 84/54 (64) 94 10/24/17 06:00 68 15 99/57 (71) 94 10/24/17 05:30 65 16 101/54 (70) 95 10/24/17 05:00 65 13 88/50 (63) 97 10/24/17 04:30 66 19 97/51 (66) 95 10/24/17 04:00 Nasal Cannula 3.0 10/24/17 04:00 69 10/24/17 04:00 98.3 69 16 87/44 (58) 95 98.3 10/24/17 03:48 81 109/56 10/24/17 03:30 68 16 109/72 (84) 96 10/24/17 03:00 68 17 103/51 (68) 95 10/24/17 02:30 71 18 100/53 (69) 95 10/24/17 02:00 69 15 96/51 (66) 96 10/24/17 01:30 69 15 98/52 (67) 97 10/24/17 01:00 74 18 97/57 (70) 97 10/24/17 00:30 68 15 92/47 (62) 97 10/24/17 00:00 71 10/24/17 00:00 98.2 71 17 92/50 (64) 96 98.2 10/24/17 00:00 Nasal Cannula 3.0 10/23/17 23:30 71 15 86/41 (56) 97 10/23/17 23:00 73 15 88/43 (58) 97 10/23/17 22:30 72 17 86/41 (56) 96 10/23/17 22:00 73 17 87/43 (58) 96 10/23/17 21:30 74 17 96/48 (64) 96 10/23/17 21:06 78 18 89/44 (59) 95 10/23/17 20:30 74 16 108/61 (77) 97 10/23/17 20:00 75 10/23/17 20:00 98.0 76 16 98/52 (67) 97 98.0 10/23/17 20:00 Nasal Cannula 3.0 10/23/17 19:30 75 15 104/57 (73) 96 10/23/17 19:00 75 15 120/63 (82) 97 10/23/17 18:00 82 16 118/63 (81) 96 10/23/17 17:30 78 16 108/60 (76) 98 10/23/17 17:00 98.0 90 17 105/62 (76) 96 98.0 10/23/17 16:45 103 19 116/87 (97) 96 10/23/17 16:30 110 20 92/72 (79) 96 10/23/17 16:15 128 22 96/84 (88) 94 7/31/18 16:05 98 102/64 10/23/17 16:00 Nasal Cannula 3.5 10/23/17 16:00 111 20 102/64 (77) 96 10/23/17 15:00 104 19 106/65 (79) 96 10/23/17 14:00 Nasal Cannula 3.5 10/23/17 14:00 97.7 111 17 105/66 (79) 96 97.7 10/23/17 13:48 97.0 154 18 116/77 93 Nasal Cannula 4.0 97.0 10/23/17 13:40 4.0 10/23/17 13:40 99 Intake and Output 10/23/17 10/24/17 19:00 07:00 Intake Total 473.66 ml 1766.58 ml Output Total 1115 ml 800 ml Balance -641.34 ml 966.58 ml Intake Oral 0 ml 120 ml IV Total 473.66 ml 1646.58 ml Output Urine Total 1115 ml 800 ml Laboratory Tests 10/23/17 20:00: Urine Color Yellow, Urine Appearance Clear, Urine pH 8, Urine Specific [place] 1.010, Urine Protein Negative, Urine Glucose (UA) Negative, Urine Ketones Negative, Urine Occult Blood Negative, Urine Nitrite Negative, Urine Bilirubin Negative, Urine Urobilinogen 4H, Urine Leukocyte Esterase Negative, Urine RBC 0- 2H, Urine WBC 0, Urine Squamous Epithelial Cells None, Urine Bacteria None, Urine Opiates Screen Negative, Urine Barbiturates Screen Negative, Phencyclidine (PCP) Screen Negative, Urine Amphetamines Screen Negative, Urine Benzodiazepines Screen Negative, Urine Cocaine Screen Negative, Urine Marijuana (THC) Screen Negative Height (Feet): 5 Height (Inches): 8.00 Weight (Pounds): 187 Cardiovascular: normal rate Respiratory/Chest: lungs clear Abdomen: soft Hanh Arthur MD Oct 24, 2017 13:00
--- NOTE | 2017-10-24 13:28 | Diagnostic Imaging Report ---
Indication: Abdominal pain, abnormal liver function tests Technique: Jacques-scale and duplex images of the upper abdomen were obtained Comparison: Findings: Gallbladder is unremarkable, without stones, wall thickening, nor pericholecystic fluid. Sonographic Belcher's sign is negative. Common bile duct measures 5 mm in diameter. No intrahepatic biliary ductal dilatation. Liver demonstrates increased echogenicity. No focal abnormality. There is hepatic surface micronodular demonstrated. Portal vein and hepatic veins are patent. Pancreas is unremarkable. Spleen is unremarkable. Left kidney measures 11.2 cm in length. Right kidney measures 10.9 cm length. Both kidneys demonstrate normal echogenicity. There is no hydronephrosis. Right kidney demonstrates a 2.2 cm cyst . Non-aneurysmal abdominal aorta . Impression: Increased hepatic echogenicity, compatible with hepatocellular disease. Hepatic surface micronodularity, suggestive of cirrhosis Negative for gallstones or dilated ducts Incidental finding right renal cyst
--- NOTE | 2017-10-24 13:28 | General Progress Note ---
Assessment/Plan Assessment/Plan alcohol dependence alcohol w/d anxiety seizure d/o -Valium 10mg q4rh prn -folate -thiamine -Dilantin 300mg qhs Subjective Date patient seen: Oct 24, 2017 Neurologic/Psychiatric: Reports: anxiety, depressed, emotional problems Allergies: Coded Allergies: No Known Allergies (Unverified , 10/22/17) Subjective the pt is uncooperative at times and refuses tests Objective Last 24 Hour Vital Signs Date Time Temp Pulse Resp B/P (MAP) Pulse Ox O2 Delivery O2 Flow Rate FiO2 10/24/17 12:00 67 10/24/17 12:00 98.8 65 14 100/64 (76) 99 98.8 10/24/17 12:00 Nasal Cannula 3.0 10/24/17 11:00 71 14 108/65 (79) 99 10/24/17 10:00 74 13 110/62 (78) 98 10/24/17 09:00 70 15 101/52 (68) 96 10/24/17 08:00 64 10/24/17 08:00 Nasal Cannula 3.0 10/24/17 08:00 72 15 103/60 (74) 98 10/24/17 07:30 98.7 67 17 98/51 (67) 98 98.7 10/24/17 07:00 63 16 103/56 (72) 95 10/24/17 06:30 67 17 84/54 (64) 94 10/24/17 06:00 68 15 99/57 (71) 94 10/24/17 05:30 65 16 101/54 (70) 95 10/24/17 05:00 65 13 88/50 (63) 97 10/24/17 04:30 66 19 97/51 (66) 95 10/24/17 04:00 Nasal Cannula 3.0 10/24/17 04:00 69 10/24/17 04:00 98.3 69 16 87/44 (58) 95 98.3 10/24/17 03:48 81 109/56 10/24/17 03:30 68 16 109/72 (84) 96 10/24/17 03:00 68 17 103/51 (68) 95 10/24/17 02:30 71 18 100/53 (69) 95 10/24/17 02:00 69 15 96/51 (66) 96 10/24/17 01:30 69 15 98/52 (67) 97 10/24/17 01:00 74 18 97/57 (70) 97 10/24/17 00:30 68 15 92/47 (62) 97 10/24/17 00:00 71 10/24/17 00:00 98.2 71 17 92/50 (64) 96 98.2 10/24/17 00:00 Nasal Cannula 3.0 10/23/17 23:30 71 15 86/41 (56) 97 10/23/17 23:00 73 15 88/43 (58) 97 10/23/17 22:30 72 17 86/41 (56) 96 10/23/17 22:00 73 17 87/43 (58) 96 10/23/17 21:30 74 17 96/48 (64) 96 10/23/17 21:06 78 18 89/44 (59) 95 10/23/17 20:30 74 16 108/61 (77) 97 10/23/17 20:00 75 10/23/17 20:00 98.0 76 16 98/52 (67) 97 98.0 10/23/17 20:00 Nasal Cannula 3.0 10/23/17 19:30 75 15 104/57 (73) 96 10/23/17 19:00 75 15 120/63 (82) 97 10/23/17 18:00 82 16 118/63 (81) 96 10/23/17 17:30 78 16 108/60 (76) 98 10/23/17 17:00 98.0 90 17 105/62 (76) 96 98.0 10/23/17 16:45 103 19 116/87 (97) 96 10/23/17 16:30 110 20 92/72 (79) 96 10/23/17 16:15 128 22 96/84 (88) 94 10/23/17 16:05 98 102/64 10/23/17 16:00 Nasal Cannula 3.5 10/23/17 16:00 111 20 102/64 (77) 96 10/23/17 15:00 104 19 106/65 (79) 96 10/23/17 14:00 Nasal Cannula 3.5 10/23/17 14:00 97.7 111 17 105/66 (79) 96 97.7 10/23/17 13:48 97.0 154 18 116/77 93 Nasal Cannula 4.0 97.0 10/23/17 13:40 4.0 10/23/17 13:40 99 Intake and Output 10/23/17 10/24/17 19:00 07:00 Intake Total 473.66 ml 1766.58 ml Output Total 1115 ml 800 ml Balance -641.34 ml 966.58 ml Intake Oral 0 ml 120 ml IV Total 473.66 ml 1646.58 ml Output Urine Total 1115 ml 800 ml Laboratory Tests 10/23/17 20:00: Urine Color Yellow, Urine Appearance Clear, Urine pH 8, Urine Specific [place] 1.010, Urine Protein Negative, Urine Glucose (UA) Negative, Urine Ketones Negative, Urine Occult Blood Negative, Urine Nitrite Negative, Urine Bilirubin Negative, Urine Urobilinogen 4H, Urine Leukocyte Esterase Negative, Urine RBC 0- 2H, Urine WBC 0, Urine Squamous Epithelial Cells None, Urine Bacteria None, Urine Opiates Screen Negative, Urine Barbiturates Screen Negative, Phencyclidine (PCP) Screen Negative, Urine Amphetamines Screen Negative, Urine Benzodiazepines Screen Negative, Urine Cocaine Screen Negative, Urine Marijuana (THC) Screen Negative Height (Feet): 5 Height (Inches): 8.00 Weight (Pounds): 187 General Appearance: no apparent distress, alert Neurologic: oriented x 3, responsive Beverley Marvin MD Oct 24, 2017 13:28
[2017-10-24] MEDS: dilTIAZem HCl 60mg tab ORAL SCH ×2 (13:55→22:13)
[2017-10-24] MEDS ORDERED: dilTIAZem HCl 60mg tab ORAL SCH ×2 (14:00)
--- NOTE | 2017-10-24 14:58 | Cardiology Report ---
APPROVED REPORT EKG Measurement Heart [id number] CO P261 [id number] Atrial flutter with 2:1 AV conduction Pulmonary disease pattern Left anterior fascicular block Nonspecific ST abnormality Abnormal ECG
[2017-10-24] MEDS ORDERED: DiphenhydrAMINE 50mg/ml Inj IM SCH (15:23)
[2017-10-24] MEDS ORDERED: LORazepam Inj 2mg/ml 1ml IV SCH (15:23)
[2017-10-24] MEDS ORDERED: Haloperidol 5mg/ml Inj IM SCH ×2 (15:24→15:45)
[2017-10-24] MEDS ORDERED: Thiamine HCl 100 MG in D5W 55 ML IVPB SCH (16:00)
--- NOTE | 2017-10-24 17:45 | Consultation ---
DATE OF CONSULTATION: 10/24/2017 CARDIOLOGY CONSULTATION CONSULTING PHYSICIAN: Helder Joshi M.D. REFERRING PHYSICIAN: Hanh Arthur M.D. REASON FOR CONSULTATION: Atrial fibrillation with rapid ventricular response. HISTORY OF PRESENT ILLNESS: The patient is a 67-year-old gentleman with history of hypertension, alcohol abuse, seizure disorder, who has been noncompliant with his medication and was brought to the emergency room for seizure and confusion. The patient also was found to be in atrial fibrillation with rapid ventricular response and heart rate of 150 beats per minute. The patient was then transferred to intensive care unit and started on amiodarone drip and subsequently I ordered Cardizem drip for better rate control. At the time of my evaluation, the patient is in intensive care unit, however, he has already converted to sinus rhythm. REVIEW OF SYSTEMS: Negative other than what was mentioned in history of present illness. PAST MEDICAL HISTORY: Includes: 1. Hypertension. 2. Alcohol abuse. 3. Seizures. SOCIAL HISTORY: He is homeless and continues to drink alcohol heavily. FAMILY HISTORY: Noncontributory. MEDICATIONS: Dilantin. PHYSICAL EXAMINATION: VITAL SIGNS: Blood pressure 110/62, pulse 74, respirations 13, and temperature 98. HEAD AND NECK: Showed no JVD. LUNGS: Coarse rhonchi. CARDIOVASCULAR: Shows regular S1 and S2 with no gallop or murmur. ABDOMEN: Soft. EXTREMITIES: No pitting edema. LABORATORY AND DIAGNOSTIC DATA: Labs show white count of 3.4, hemoglobin 12.8, hematocrit 39.6, and platelet count of 65,000. Sodium 133, potassium 3.9, BUN 7, creatinine 1, glucose of 175. His T4 and TSH are within normal range. ASSESSMENT AND PLAN: 1. Atrial flutter/fibrillation with rapid ventricular response. The patient already converted to sinus rhythm. I would discontinue Cardizem drip as well as amiodarone drip. Put him on Cardizem 60 mg every 8 hours. We will hold off on anticoagulation as the patient is very high at fall risk in view of his heavy alcohol use. 2. Hypertension. Continue Cardizem 60 mg every 8 hours. 3. Seizure disorder, on Dilantin. 4. History of alcohol abuse. On thiamine, folate, and diazepam. Thank you very much, Dr. Arthur, for allowing me to participate in the care of this patient. Please do not hesitate to contact me for any questions regarding my evaluation. The case was discussed with Sheryl, the intensive care unit nurse. Helder Joshi M.D. DR: Chacorta JOB#: [id number] CC:
[2017-10-24] MEDS ORDERED: Tubing IV Secondary IV ONE (18:35)
[2017-10-24] MEDS ORDERED: D5NS 1000ml IV ONE (18:35)
[2017-10-24] MEDS ORDERED: LORazepam Inj 2mg/ml 1ml IV PRN (19:45)
[2017-10-24] MEDS ORDERED: Phenytoin 100mg cap ORAL SCH (21:00)
[2017-10-24] MEDS: Phenytoin 100mg cap ORAL SCH (22:12)
--- NOTE | 2017-10-24 23:15 | Consultation ---
DATE OF CONSULTATION: 10/24/2017 NOTE: POOR AUDIO HEMATOLOGY/ONCOLOGY CONSULTATION CONSULTING PHYSICIAN: Nakul Gonzales M.D. REQUESTING PHYSICIAN: Hanh Arthur M.D. REASON FOR CONSULTATION: Evaluation of pancytopenia. IDENTIFICATION DATA: Dear Dr. Arthur, The patient is a pleasant 67-year-old male with past medical history significant for seizure disorder, history of alcohol abuse, history of alcohol withdrawal, has been noncompliant with his medications, noted to be in atrial fibrillation. Dr. Joshi notified. The patient started on Cardizem as well as amiodarone. The patient without any seizures noted at this time, however, continues to be pancytopenic. Therefore, Hematology service was consulted for further evaluation and treatment. CAT scan of the brain completed. No significant interval change. No evidence of intracranial hemorrhage. PAST MEDICAL HISTORY: Alcohol abuse, seizure disorder, noncompliant, thrombocytopenia, and homelessness. PAST SURGICAL HISTORY: Unable to recall what surgery. MEDICATIONS: Dilantin. SOCIAL HISTORY: History of alcohol abuse, history of smoking, homelessness. FAMILY HISTORY: Noncontributory. REVIEW OF SYSTEMS: CONSTITUTIONAL: No fever, chills, or night sweats. SKIN: No rashes, bumps, or itching. HEENT: No headache, hearing or visual changes. BREASTS: No lumps, pain, or discharge. PULMONARY: No cough, sputum, or shortness of breath. GASTROINTESTINAL: No nausea, vomiting, or diarrhea. GENITOURINARY: No dysuria, frequency, or urgency. MUSCULOSKELETAL: No joint swelling, muscle pain, or trauma. PHYSICAL EXAMINATION: VITAL SIGNS: Reviewed. GENERAL: No acute distress. LUNGS: Decreased breath sounds. CARDIOVASCULAR: Regular rate. No S3 or S4. ABDOMEN: Soft, nontender, and nondistended. EXTREMITIES: 1+ edema. . LABORATORY AND DIAGNOSTIC DATA: . Imaging pending. Ultrasound of the abdomen is pending. ASSESSMENT AND RECOMMENDATIONS: 1. Pancytopenia, possibly due to underlying myelosuppression. Hepatitis panel, HIV panel pending. We will obtain further results of the patient's imaging and the ultrasound of the abdomen, possibly hepatosplenomegaly or cirrhosis. 2. Anemia due to underlying chronic disease. The patient is in atrial fibrillation, noncompliant history of medications. Cardizem p.o. transfer to the intensive care unit. 3. Coagulopathy secondary to alcohol abuse. 4. Pain syndrome, pain disorder. The patient is complaining of pain at this time. 5. Altered mental status, secondary to alcohol abuse. 6. Seizure disorder. Noncompliant to medications. I appreciate the consultation. Nakul Gonzales M.D. DR: EAGLE JOB#: [id number] CC:
[2017-10-25 06:30] VITALS: BP 117/69
[2017-10-25] MEDS: dilTIAZem HCl 60mg tab ORAL SCH ×3 (06:35→21:02)
[2017-10-25 07:43] VITALS: BP 107/78
--- NOTE | 2017-10-25 08:12 | General Progress Note ---
Assessment/Plan Status: stable Assessment/Plan 1. Pancytopenia, possibly due to underlying myelosuppression. In addition has cirrhosis on imaging, Incidental finding right renal cyst --> Hepatitis panel, HIV panel pending. --> US abd: Increased hepatic echogenicity, compatible with hepatocellular disease. Hepatic surface micronodularity, suggestive of cirrhosis. Negative for gallstones or dilated ducts. --> continues to refuse labs 2. Anemia due to underlying chronic disease. --> Continue to closely monitor for improvement. --> Anemia w/u has been reviewed. Will trend CBC daily. --> Hgb goal >7 3. Coagulopathy, secondary to alcohol abuse. 4. Pain syndrome, pain disorder. 5. Altered mental status, secondary to alcohol abuse. 6. Seizure disorder. Noncompliant to medications. The time the note was entered does not necessarily correspond to the time the patient was seen. Subjective Date patient seen: Oct 25, 2017 ROS Limited/Unobtainable: Yes Hematologic/Lymphatic: Reports: anemia Allergies: Coded Allergies: No Known Allergies (Unverified , 10/22/17) All Systems: reviewed and negative except above Subjective Pt agitated and refusing care. No acute events. Vitals are stable. Objective Last 24 Hour Vital Signs Date Time Temp Pulse Resp B/P (MAP) Pulse Ox O2 Delivery O2 Flow Rate FiO2 10/25/17 07:43 97.2 109 20 107/78 (88) 95 97.2 10/25/17 06:35 83 117/69 10/25/17 06:30 97.2 83 17 117/69 (85) 96 97.2 10/24/17 22:13 81 124/68 10/24/17 20:00 98.2 78 16 118/67 (84) 96 98.2 10/24/17 17:29 83 10/24/17 16:45 67 16 119/67 (84) 10/24/17 16:00 70 16 110/66 (81) 10/24/17 13:55 79 110/70 10/24/17 12:00 67 10/24/17 12:00 98.8 65 14 100/64 (76) 99 98.8 10/24/17 12:00 Nasal Cannula 3.0 10/24/17 11:00 71 14 108/65 (79) 99 10/24/17 10:00 74 13 110/62 (78) 98 10/24/17 09:00 70 15 101/52 (68) 96 Intake and Output 10/24/17 10/25/17 19:00 07:00 Intake Total 540 ml 240 ml Output Total 150 ml Balance 390 ml 240 ml Intake Oral 240 ml 240 ml IV Total 300 ml Output Urine Total 150 ml # Voids 1 2 Height (Feet): 5 Height (Inches): 8.00 Weight (Pounds): 185 General Appearance: no apparent distress, agitated, combative EENT: normal ENT inspection Neck: normal alignment Cardiovascular: normal peripheral pulses Respiratory/Chest: no respiratory distress Abdomen: soft Nakul Gonzales MD Oct 25, 2017 08:12
[2017-10-25] MEDS: Thiamine 100mg tab ORAL SCH (08:13)
[2017-10-25] MEDS ORDERED: Thiamine 100mg tab ORAL SCH (09:00)
--- NOTE | 2017-10-25 09:03 | Cardiac Electrophysiology PN ---
Assessment/Plan Assessment/Plan 1. Atrial flutter/fibrillation with rapid ventricular response. not hyperthyroid. Already converted to sinus rhythm. Continue Cardizem 60 mg every 8 hours. We will hold off on anticoagulation as the patient is very high at fall risk in view of his heavy alcohol use as well as noncompliance. 2. Hypertension. Continue Cardizem 60 mg every 8 hours. 3. Seizure disorder, on Dilantin. 4. History of alcohol abuse. On thiamine, folate, and diazepam. Subjective Subjective Refusing telemetry and iv placement. Transferred out of ICU. Objective Last 24 Hour Vital Signs Date Time Temp Pulse Resp B/P (MAP) Pulse Ox O2 Delivery O2 Flow Rate FiO2 10/25/17 08:43 Nasal Cannula 3.0 10/25/17 07:43 97.2 109 20 107/78 (88) 95 97.2 10/25/17 06:35 83 117/69 10/25/17 06:30 97.2 83 17 117/69 (85) 96 97.2 10/24/17 22:13 81 124/68 10/24/17 20:00 98.2 78 16 118/67 (84) 96 98.2 10/24/17 17:29 83 10/24/17 16:45 67 16 119/67 (84) 10/24/17 16:00 70 16 110/66 (81) 10/24/17 13:55 79 110/70 10/24/17 12:00 67 10/24/17 12:00 98.8 65 14 100/64 (76) 99 98.8 10/24/17 12:00 Nasal Cannula 3.0 10/24/17 11:00 71 14 108/65 (79) 99 10/24/17 10:00 74 13 110/62 (78) 98 Intake and Output 10/24/17 10/25/17 19:00 07:00 Intake Total 540 ml 240 ml Output Total 150 ml Balance 390 ml 240 ml Intake Oral 240 ml 240 ml IV Total 300 ml Output Urine Total 150 ml # Voids 1 2 Microbiology Date/Time Source Procedure Growth Status 10/23/17 10:41 Nasal Nares MRSA Culture - Final NO METHICILLIN RESISTANT STAPH AUREUS... Complete Objective HEAD AND NECK: No JVD. LUNGS: Coarse rhonchi. CARDIOVASCULAR: Regular S1 and S2 with no gallop or murmur. ABDOMEN: Soft. EXTREMITIES: No pitting edema. Helder Joshi MD Oct 25, 2017 09:03
--- NOTE | 2017-10-25 10:13 | Nephrology Progress Note ---
Assessment/Plan Problem List: (1) Seizure (2) Alcohol abuse (3) Thrombocytopenia Assessment HypoNatremia- Seizure - Etoh Abuse- PanCytopenia- Plan uncoaporative- refuses blood work- continue per Psych will change meds to po as possible Correct lytes , mag , Phos.. Anti Sz meds- monitor Dilantin- UA DIlantin levels Subjective ROS Limited/Unobtainable: No Constitutional: Reports: malaise Objective Objective Last 24 Hour Vital Signs Date Time Temp Pulse Resp B/P (MAP) Pulse Ox O2 Delivery O2 Flow Rate FiO2 10/25/17 08:43 Nasal Cannula 3.0 10/25/17 07:43 97.2 109 20 107/78 (88) 95 97.2 10/25/17 06:35 83 117/69 10/25/17 06:30 97.2 83 17 117/69 (85) 96 97.2 10/24/17 22:13 81 124/68 10/24/17 20:00 98.2 78 16 118/67 (84) 96 98.2 10/24/17 17:29 83 10/24/17 16:45 67 16 119/67 (84) 10/24/17 16:00 70 16 110/66 (81) 10/24/17 13:55 79 110/70 10/24/17 12:00 67 10/24/17 12:00 98.8 65 14 100/64 (76) 99 98.8 10/24/17 12:00 Nasal Cannula 3.0 10/24/17 11:00 71 14 108/65 (79) 99 Intake and Output 10/24/17 10/25/17 19:00 07:00 Intake Total 540 ml 240 ml Output Total 150 ml Balance 390 ml 240 ml Intake Oral 240 ml 240 ml IV Total 300 ml Output Urine Total 150 ml # Voids 1 2 Height (Feet): 5 Height (Inches): 8.00 Weight (Pounds): 185 General Appearance: no apparent distress, mild distress Cardiovascular: arrhythmia, other - variable Respiratory/Chest: decreased breath sounds Abdomen: soft Vikas Chowdhury MD Oct 25, 2017 10:13
[2017-10-25 12:00] VITALS: BP 117/67
[2017-10-25] MEDS ORDERED: Haloperidol Decanoate 50mg Inj IM ONE (12:00)
--- NOTE | 2017-10-25 12:27 | General Progress Note ---
Assessment/Plan Status: unchanged Assessment/Plan alcohol dependence alcohol w/d anxiety seizure d/o -Valium 10mg q4rh prn -folate -thiamine -Dilantin 300mg qhs -haldol dec 50 im -seroquel 50mg tid Subjective Date patient seen: Oct 25, 2017 Neurologic/Psychiatric: Reports: anxiety, depressed, emotional problems Allergies: Coded Allergies: No Known Allergies (Unverified , 10/22/17) Subjective the pt is agitated and pulled out iv access. the pt is delusional disorganized Objective Last 24 Hour Vital Signs Date Time Temp Pulse Resp B/P (MAP) Pulse Ox O2 Delivery O2 Flow Rate FiO2 10/25/17 12:00 97.9 83 20 117/67 (84) 92 97.9 10/25/17 08:43 Nasal Cannula 3.0 10/25/17 07:43 97.2 109 20 107/78 (88) 95 97.2 10/25/17 06:35 83 117/69 10/25/17 06:30 97.2 83 17 117/69 (85) 96 97.2 10/24/17 22:13 81 124/68 10/24/17 20:00 98.2 78 16 118/67 (84) 96 98.2 10/24/17 17:29 83 10/24/17 16:45 67 16 119/67 (84) 10/24/17 16:00 70 16 110/66 (81) 10/24/17 13:55 79 110/70 Intake and Output 10/24/17 10/25/17 19:00 07:00 Intake Total 540 ml 240 ml Output Total 150 ml Balance 390 ml 240 ml Intake Oral 240 ml 240 ml IV Total 300 ml Output Urine Total 150 ml # Voids 1 2 Height (Feet): 5 Height (Inches): 8.00 Weight (Pounds): 185 General Appearance: alert, confused, moderate distress, agitated Beverley Marvin MD Oct 25, 2017 12:27
[2017-10-25] MEDS: Phenytoin 100mg cap ORAL SCH (21:01)
[2017-10-26] MEDS: dilTIAZem HCl 60mg tab ORAL SCH ×3 (06:22→21:29)
[2017-10-26 08:00] VITALS: BP 128/72
[2017-10-26] MEDS: Thiamine 100mg tab ORAL SCH (08:04)
--- NOTE | 2017-10-26 08:48 | General Progress Note ---
Assessment/Plan Status: stable Assessment/Plan 1. Pancytopenia, possibly due to underlying myelosuppression. In addition has cirrhosis on imaging, Incidental finding right renal cyst --> Hepatitis panel, HIV panel pending. --> US abd: Increased hepatic echogenicity, compatible with hepatocellular disease. Hepatic surface micronodularity, suggestive of cirrhosis. Negative for gallstones or dilated ducts. --> continues to refuse labs 2. Anemia due to underlying chronic disease. --> Continue to closely monitor for improvement. --> Anemia w/u has been reviewed. Will trend CBC daily. --> Hgb goal >7 --> 10/23: Hgb 12.8 3. Coagulopathy, secondary to alcohol abuse. 4. Pain syndrome, pain disorder. 5. Altered mental status, secondary to alcohol abuse. 6. Seizure disorder. Noncompliant to medications. The time the note was entered does not necessarily correspond to the time the patient was seen. Subjective Date patient seen: Oct 26, 2017 ROS Limited/Unobtainable: Yes Hematologic/Lymphatic: Reports: anemia Allergies: Coded Allergies: No Known Allergies (Unverified , 10/22/17) All Systems: reviewed and negative except above Subjective Pt agitated and refusing care. No acute events. H/H stable as of 10/23. Objective Last 24 Hour Vital Signs Date Time Temp Pulse Resp B/P (MAP) Pulse Ox O2 Delivery O2 Flow Rate FiO2 10/26/17 08:00 98.1 99 20 128/72 (90) 93 98.1 10/26/17 06:22 111 117/67 10/25/17 21:02 111 117/67 10/25/17 21:00 Nasal Cannula 3.0 10/25/17 16:00 111 10/25/17 13:01 83 117/67 10/25/17 12:00 79 10/25/17 12:00 97.9 83 20 117/67 (84) 92 97.9 Intake and Output 10/25/17 10/26/17 19:00 07:00 Intake Total 720 ml Output Total 500 ml Balance 220 ml Intake Oral 720 ml Output Urine Total 500 ml Height (Feet): 5 Height (Inches): 8.00 Weight (Pounds): 186 General Appearance: no apparent distress EENT: PERRL/EOMI Neck: non-tender Cardiovascular: tachycardia Respiratory/Chest: no respiratory distress Abdomen: soft Nakul Gonzales MD Oct 26, 2017 08:48
--- NOTE | 2017-10-26 09:28 | Cardiac Electrophysiology PN ---
Assessment/Plan Assessment/Plan 1. Atrial flutter/fibrillation with rapid ventricular response. Not hyperthyroid. Converted to sinus rhythm. Continue Cardizem 60 mg every 8 hours. Hold off on anticoagulation as the patient is very high at fall risk in view of his heavy alcohol, noncompliance and seizure disorder. 2. Hypertension. Continue Cardizem 60 mg every 8 hours. 3. Seizure disorder, on Dilantin. 4. History of alcohol abuse. On thiamine, folate, and diazepam. Subjective Subjective Agreed to telemetry now in SR. Refusing iv placement. Objective Last 24 Hour Vital Signs Date Time Temp Pulse Resp B/P (MAP) Pulse Ox O2 Delivery O2 Flow Rate FiO2 10/26/17 09:00 Room Air 10/26/17 08:00 98.1 99 20 128/72 (90) 93 98.1 10/26/17 06:22 111 117/67 10/25/17 21:02 111 117/67 10/25/17 21:00 Nasal Cannula 3.0 10/25/17 16:00 111 10/25/17 13:01 83 117/67 10/25/17 12:00 79 10/25/17 12:00 97.9 83 20 117/67 (84) 92 97.9 Intake and Output 10/25/17 10/26/17 19:00 07:00 Intake Total 720 ml Output Total 500 ml Balance 220 ml Intake Oral 720 ml Output Urine Total 500 ml Microbiology Date/Time Source Procedure Growth Status 10/23/17 10:41 Nasal Nares MRSA Culture - Final NO METHICILLIN RESISTANT STAPH AUREUS... Complete 10/23/17 10:41 Rectum VRE Culture - Final NO VANCOMYCIN RESISTANT ENTEROCOCCUS ... Complete 10/23/17 10:41 Rectum - Final NO CARBAPENEM-RESISTANT ENTEROBACTERI... Complete Objective HEAD AND NECK: No JVD. LUNGS: Coarse rhonchi. CARDIOVASCULAR: Regular S1 and S2 with no gallop or murmur. ABDOMEN: Soft. EXTREMITIES: No pitting edema. Helder Joshi MD Oct 26, 2017 09:28
--- NOTE | 2017-10-26 09:32 | Nephrology Progress Note ---
Assessment/Plan Problem List: (1) Seizure (2) Alcohol abuse (3) Thrombocytopenia Assessment HypoNatremia- Seizure - Etoh Abuse- PanCytopenia- Plan uncoaporative- refuses blood work- continue per Psych will change meds to po as possible Correct lytes , mag , Phos.. Anti Sz meds- monitor Dilantin- UA DIlantin levels Subjective ROS Limited/Unobtainable: No Constitutional: Reports: other - remains un coaporative Objective Objective Last 24 Hour Vital Signs Date Time Temp Pulse Resp B/P (MAP) Pulse Ox O2 Delivery O2 Flow Rate FiO2 10/26/17 09:00 Room Air 10/26/17 08:00 98.1 99 20 128/72 (90) 93 98.1 10/26/17 06:22 111 117/67 10/25/17 21:02 111 117/67 10/25/17 21:00 Nasal Cannula 3.0 10/25/17 16:00 111 10/25/17 13:01 83 117/67 10/25/17 12:00 79 10/25/17 12:00 97.9 83 20 117/67 (84) 92 97.9 Intake and Output 10/25/17 10/26/17 19:00 07:00 Intake Total 720 ml Output Total 500 ml Balance 220 ml Intake Oral 720 ml Output Urine Total 500 ml Height (Feet): 5 Height (Inches): 8.00 Weight (Pounds): 186 General Appearance: no apparent distress Vikas Chowdhury MD Oct 26, 2017 09:32
[2017-10-26 12:00] VITALS: BP 121/83
--- NOTE | 2017-10-26 12:07 | General Progress Note ---
Assessment/Plan Problem List: (1) Atrial flutter ICD Codes: I48.92 - Unspecified atrial flutter SNOMED: 6189497 (2) Epileptic seizure, generalized ICD Codes: G40.309 - Generalized idiopathic epilepsy and epileptic syndromes, not intractable, without status epilepticus SNOMED: 39609412 (3) Alcohol abuse ICD Codes: F10.10 - Alcohol abuse, uncomplicated SNOMED: 59098785 (4) Thrombocytopenia ICD Codes: D69.6 - Thrombocytopenia, unspecified SNOMED: 953194613 (5) Seizure ICD Codes: R56.9 - Unspecified convulsions SNOMED: 01496330 Status: progressing Assessment/Plan a flutter rate controlled needs snf placement reviewed chart and labs no seizure today etoh abuse Subjective ROS Limited/Unobtainable: Yes Allergies: Coded Allergies: No Known Allergies (Unverified , 10/22/17) Objective Last 24 Hour Vital Signs Date Time Temp Pulse Resp B/P (MAP) Pulse Ox O2 Delivery O2 Flow Rate FiO2 10/26/17 12:00 98.0 95 20 121/83 (96) 94 98.0 10/26/17 09:00 Room Air 10/26/17 08:00 99 10/26/17 08:00 98.1 99 20 128/72 (90) 93 98.1 10/26/17 06:22 111 117/67 10/25/17 21:02 111 117/67 10/25/17 21:00 Nasal Cannula 3.0 10/25/17 16:00 111 10/25/17 13:01 83 117/67 Intake and Output 10/25/17 10/26/17 19:00 07:00 Intake Total 720 ml Output Total 500 ml Balance 220 ml Intake Oral 720 ml Output Urine Total 500 ml Height (Feet): 5 Height (Inches): 8.00 Weight (Pounds): 186 Respiratory/Chest: chest wall non-tender Abdomen: soft Hanh Arthur MD Oct 26, 2017 12:07
[2017-10-26 16:00] VITALS: BP 122/68
[2017-10-26] MEDS ORDERED: DiphenhydrAMINE 50mg/ml Inj IM SCH (16:00)
[2017-10-26] MEDS ORDERED: LORazepam Inj 2mg/ml 1ml IM SCH (16:00)
[2017-10-26] MEDS ORDERED: Haloperidol 5mg/ml Inj IM SCH (16:05)
[2017-10-26 20:00] VITALS: BP 113/79
[2017-10-26] MEDS: Phenytoin 100mg cap ORAL SCH (21:29)
--- NOTE | 2017-10-26 23:22 | General Progress Note ---
Assessment/Plan Assessment/Plan alcohol dependence alcohol w/d anxiety seizure d/o -Valium 10mg q4rh prn -folate -thiamine -Dilantin 300mg qhs -haldol dec 50 im -seroquel 50mg tid Subjective Date patient seen: Oct 26, 2017 Neurologic/Psychiatric: Reports: anxiety, depressed, emotional problems Allergies: Coded Allergies: No Known Allergies (Unverified , 10/22/17) Subjective the pt was agitated and wandering needed a cocktail today Objective Last 24 Hour Vital Signs Date Time Temp Pulse Resp B/P (MAP) Pulse Ox O2 Delivery O2 Flow Rate FiO2 10/26/17 21:29 90 113/79 10/26/17 21:00 Room Air 10/26/17 20:00 97.9 90 22 113/79 (90) 96 97.9 10/26/17 16:00 98.0 91 20 122/68 (86) 93 98.0 10/26/17 13:04 93 116/81 10/26/17 12:00 88 10/26/17 12:00 98.0 95 20 121/83 (96) 94 98.0 10/26/17 09:00 Room Air 10/26/17 08:00 99 10/26/17 08:00 98.1 99 20 128/72 (90) 93 98.1 10/26/17 06:22 111 117/67 Intake and Output 10/25/17 10/26/17 19:00 07:00 Intake Total 720 ml Output Total 500 ml Balance 220 ml Intake Oral 720 ml Output Urine Total 500 ml Height (Feet): 5 Height (Inches): 8.00 Weight (Pounds): 186 General Appearance: alert, confused, agitated Beverley Marvin MD Oct 26, 2017 23:22
[2017-10-27] VITALS: BP 126/78
[2017-10-27 04:00] VITALS: BP 132/69
[2017-10-27] MEDS: dilTIAZem HCl 60mg tab ORAL SCH (05:26)
[2017-10-27 08:00] VITALS: BP 131/80
--- NOTE | 2017-10-27 08:15 | Physician Query ---
--------- THIS DOCUMENT IS A PERMANENT PART OF THE MEDICAL RECORD --------- PLEASE COMPLETE DOCUMENT BEFORE SIGNING Dear Dr. Arthur Date: 2017 Ice Maker/CDS Name: Se Beltre Ice Maker / CDS Phone # [phone] Exercise your independent professional judgment when responding to query. Question asked do not imply a particular answer is desired/expected. Clinical Documentation States: "Altered Mental Status / Confusion" documented in H&P. Patient is admitted with Seizure. Clinical Findings Show: At the time of admission HR: 150, Sodium (Na): 133, Glucose: 175 Please indicate the nature and chronicity of the condition below: [] Metabolic Encephalopathy [] Toxic Encephalopathy [] Toxic - Metabolic Encephalopathy [] Progressive Encephalopathy [] Encephalopathy, Other [] Other: [] Not Applicable Severity [] Acute [] Chronic [] Acute on Chronic [] Unable to determine Condition Present on Admission: [] Yes [] No []Clinically Undeterminable Please also document in your Progress Notes and/or Discharge Summary and indicate if the condition was present on admission. MTDD
[2017-10-27] MEDS: Thiamine 100mg tab ORAL SCH (08:20)
--- NOTE | 2017-10-27 09:24 | Nephrology Progress Note ---
Assessment/Plan Problem List: (1) Seizure (2) Alcohol abuse (3) Thrombocytopenia Assessment HypoNatremia- Seizure - Etoh Abuse- PanCytopenia- Plan uncoaporative- refuses blood work- continue per Psych will change meds to po as possible Correct lytes , mag , Phos.. Anti Sz meds- monitor Dilantin- UA DIlantin levels Subjective ROS Limited/Unobtainable: No Objective Objective Last 24 Hour Vital Signs Date Time Temp Pulse Resp B/P (MAP) Pulse Ox O2 Delivery O2 Flow Rate FiO2 10/27/17 08:00 Room Air 10/27/17 08:00 97.4 99 21 131/80 (97) 96 97.4 10/27/17 05:26 81 132/69 10/27/17 04:00 98.1 81 20 132/69 (90) 96 98.1 10/27/17 00:00 97.4 86 20 126/78 (94) 97 97.4 10/26/17 21:29 90 113/79 10/26/17 21:00 Room Air 10/26/17 20:00 97.9 90 22 113/79 (90) 96 97.9 10/26/17 16:00 98.0 91 20 122/68 (86) 93 98.0 10/26/17 13:04 93 116/81 10/26/17 12:00 88 10/26/17 12:00 98.0 95 20 121/83 (96) 94 98.0 Intake and Output 10/26/17 10/27/17 19:00 07:00 Intake Total 120 ml Output Total 670 ml Balance -550 ml Intake Oral 120 ml Output Urine Total 670 ml # Voids 2 Height (Feet): 5 Height (Inches): 8.00 Weight (Pounds): 185 General Appearance: no apparent distress Vikas Chowdhury MD Oct 27, 2017 09:24
--- NOTE | 2017-10-27 14:14 | Diagnostic Imaging Report ---
APPROVED REPORT CPT Code: 74845 Present Symptoms Lower Extremity Pain: Bilateral BILATERAL: Imaging reveals a patent deep venous system bilaterally. There is no evidence of thrombus within the femoral, popliteal or right tibial segments. The greater saphenous veins are also within normal limits. Doppler indicates normal spontaneous flow within these segments. The left tibial segments not imaged, due to pain.
--- NOTE | 2017-10-28 20:48 | General Progress Note ---
Assessment/Plan Assessment/Plan 1. Pancytopenia, possibly due to underlying myelosuppression. In addition has cirrhosis on imaging, Incidental finding right renal cyst --> Hepatitis panel, HIV panel pending. patient refused labs however --> US abd: Increased hepatic echogenicity, compatible with hepatocellular disease. Hepatic surface micronodularity, suggestive of cirrhosis. Negative for gallstones or dilated ducts. --> continues to refuse labs 2. Anemia due to underlying chronic disease. --> Continue to closely monitor for improvement. --> Anemia w/u has been reviewed. Will trend CBC daily. --> Hgb goal >7 --> 10/23: Hgb 12.8 3. Coagulopathy, secondary to alcohol abuse. 4. Pain syndrome, pain disorder. 5. Altered mental status, secondary to alcohol abuse. 6. Seizure disorder. Noncompliant to medications. The time the note was entered does not necessarily correspond to the time the patient was seen. Subjective Date patient seen: Oct 27, 2017 Allergies: Coded Allergies: No Known Allergies (Unverified , 10/22/17) Subjective Pt agitated and refusing care at this time. No acute events. Objective Height (Feet): 5 Height (Inches): 8.00 Weight (Pounds): 185 General Appearance: no apparent distress EENT: normal ENT inspection Neck: normal alignment Cardiovascular: normal rate Respiratory/Chest: lungs clear Abdomen: non tender Extremities: normal range of motion Edema: 1+ Leg (L), 1+ Leg (R) Edema: moderate edema Neurologic: alert Skin: warm/dry Nakul Gonzales MD Oct 28, 2017 20:48
--- NOTE | 2017-10-30 08:33 | Discharge Summary ---
Discharge Summary Discharge Summary _ DATE OF ADMISSION: 10/23/2017 DATE OF DISCHARGE: 10/27/2017. Patient signed against medical advise REASON FOR ADMISSION: 67 years old male with past medical history significant for alcohol abuse, seizure disorder, noncompliance with medication, presented to emergency department after witnessed seizure. Upon evaluation in emergency room patient was confused, tachycardic with heart rate 150. Patient required placement on supplemental oxygen initially . EKG revealed atrial flutter with 2:1 AV conduction, left anterior fascicular block. Laboratory workup revealed WBC 8.4 , platelet 65, sodium 133 AST 79 ALT 38. Dilantin level subtherapeutic 3.5. CT of the head revealed no acute intracranial pathology. It demonstrated however findings suggestive of chronic ischemic microvascular changes. Noted mild soft tissue swelling. No depressed, calvarial fracture. Urine toxicology screen was negative. Patient was started on IV Cardizem 2 without any improvement in heart rate. The patient was given IV magnesium and IV thiamine. The patient was given Keppra and Ativan . Tachycardia continued after medication interventions. Patient then started on amiodarone drip and transferred to ICU for further management. Patient admitted with diagnoses of atrial flutter with rapid ventricular response, seizure disorder, generalized, altered mental status, alcohol abuse , thrombocytopenia , CONSULTANTS: utilization management um nurse Dr. Joshi manager internet ret[employer] sales Dr. Chowdhury stock handler floorperson/oncologist Dr. Merino psychiatrist [facility]: Patient admitted to ICU. Patient started on amiodarone and Cardizem drips. Patient started on banana bag. Seizure precaution maintained. Dilantin resumed. Patient converted to sinus rhythm. Subsequently, Amiodarone and [id number] drips were discontinued . Patient started on oral Cardizem. TSH within normal limits. Patient without evidence of thyroid disease. After patient stabilized , he was moved to telemetry floor. Venous duplex bilateral lower extremity revealed no evidence of DVT. Blood pressure was managed with Cardizem and remained stable. Per utilization management um nurse , continue Cardizem . Anticoagulation was on hold , since patient was a high risk for falls due to heavy alcohol use. Patient was counseled on alcohol cessation. Patient with evidence of pancytopenia. Puff Iron Operator closely followed. Abdominal ultrasound revealed increased hepatic echogenicity, consistent with hepatocellular disease. Liver surface with micronodularity was suggestive of cillosis. No gallstones, no dilated ducts. Patient refused further blood draw. According to stock handler floorperson , pancytopenia was likely due to underlying myelosuppression secondary to alcohol abuse. In addition patient had cirrhosis on imaging. As mentioned above, patient refused further labs such as hepatitis panel and HIV test. Anemia was due to underlying chronic disease. Hemoglobin and hematocrit were closely monitored with goal to keep hemoglobin above 7. Last hemoglobin 12.8. Thrombocytopenia was likely due to alcohol abuse. Nephrology consult requested due to hyponatremia. However patient refused further labs. Psychiatrist diagnosed patient with anxiety disorder along with alcohol dependency and alcohol withdrawal. Patient was continued on oral thiamine , folic acid and multivitamin. Patient was started on Seroquel per psychiatrist. Patient continued to be noncompliant and refused at blood draw. Family decided to sign patient against medical advice. The risks and consequences of signing AGAINST MEDICAL ADVICE were discussed with patient and family in detail. Nevertheless AMA form was signed, and patient leftaccompanied by family. Family is taking Patient to [facility] for further management. FINAL DIAGNOSES: Atrial flutter/fibrillation with rapid ventricular response. Epileptic seizure, generalized with breakthrough seizure episode secondary to noncompliance Altered mental status probably due to encephalopathy secondary to seizure and alcohol abuse Noncompliance Alcohol dependency Alcohol withdrawal ETOH abuse Thrombocytopenia Hypertension Anxiety disorder Pancytopenia Anemia of underlying chronic disease Hyponatremia I have been assigned to dictate discharge summary for this account. I was not involved in the patient's management. Karlene Morales NP Oct 30, 2017 08:33
--- NOTE | 2017-11-02 14:13 | Cardiology Report ---
APPROVED REPORT EKG Measurement Heart [id number] Normal sinus rhythm Left anterior fascicular block Abnormal ECG
== END 2017-10-27 10:48 | disposition left against medical advice (07) | DRG 100 ==
LOC: EDBD 08:56 → EDBEDREQ 09:25 → EMR 09:49 → 2E 09:54 → EDBEDREQ 10:32 → EDBEDREQSVC 11:33 → EDBEDREQ 11:33 → 2W 11:56 → EDBEDREQ 12:13 → EDBEDREQSVC 12:14 → EDBEDREQ 12:51 → ICU 12:55 → 2E 10-24 13:30
DX: G40.409 Other generalized epilepsy and epileptic syndromes, not intractable, without status epilepticus (principal); G93.41 Metabolic encephalopathy; I48.92 Unspecified atrial flutter; F10.239 Alcohol dependence with withdrawal, unspecified; D61.818 Other pancytopenia; E87.1 Hypo-osmolality and hyponatremia; D68.8 Other specified coagulation defects; I48.91 Unspecified atrial fibrillation; Z91.14 Patient's other noncompliance with medication regimen; Z59.0 Homelessness; M25.511 Pain in right shoulder; Z91.81 History of falling; D69.6 Thrombocytopenia, unspecified; I10 Essential (primary) hypertension; F41.9 Anxiety disorder, unspecified; D63.8 Anemia in other chronic diseases classified elsewhere; Z53.29 Procedure and treatment not carried out because of patient's decision for other reasons; G89.4 Chronic pain syndrome; I44.4 Left anterior fascicular block
CPT/HCPCS: 36415; 70450; 76700; 80053; 80185; 80307; 81001; 84439; 84443; 85007; 85025; 86140; 87081; 93005; 93970; J0282; J1165